=== PATIENT | male | born 1985 ===

== ENCOUNTER → 2019-01-09 | Outpatient (CLI) | payer SELFPAY ==
[2019-01-09 15:57] LABS: CHLAM PCR NOT DETECTED (NOT DETECT); GON PCR NOT DETECTED (NOT DETECT)
== END ==
LOC: OD 13:38
PROVIDERS: ATTEND Nurse Practitioner Family
DX: N50.89 Other specified disorders of the male genital organs (principal); Z20.2 Contact with and (suspected) exposure to infections with a predominantly sexual mode of transmission
CPT/HCPCS: 36415; 86592; 87491; 87591